=== PATIENT | female | born 1945 | race Caucasian/White ===

== ENCOUNTER → 2018-01-25 | Outpatient (CLI) | payer OTHER ==
[2018-01-26 13:41] LABS: Stool Occult Bld Immuno 1 Negative (NEGATIVE); Stool Occult Bld Immuno 2 Negative (NEGATIVE)
== END | disposition home or self-care (01) ==
LOC: LAB SHORT 12:35 → LAB 12:35
PROVIDERS: Internal Medicine Gastroenterology
DX: Z12.11 Encounter for screening for malignant neoplasm of colon (principal)
CPT/HCPCS: 82274

== ENCOUNTER 2023-10-27 17:34 | Emergency (ER) | payer OTHER ==
[~2023-10-27] VITALS: Ht 157.5 cm; Wt 65.8 kg
[2023-10-27 18:23] LABS: BASOPHILS ABSOLUTE AUTO 0.07 K/mm3 (0.00-0.23); BASOPHILS PERCENT AUTO 1 % (0-2); EOSINOPHILS ABSOLUTE AUTO 0.41 K/mm3 (0.00-0.68); EOSINOPHILS PERCENT AUTO 5 % (0-6); IMMATURE GRAN ABSOLUTE AUTO 0.04 K/mm3 (0.00-0.10); IMMATURE GRAN PERCENT AUTO 1 % (0-1); LYMPHOCYTES ABSOLUTE AUTO 2.28 K/mm3 (0.84-5.20); LYMPHOCYTES PERCENT AUTO 28 % (21-46); MONOCYTES ABSOLUTE AUTO 0.53 K/mm3 (0.16-1.47); MONOCYTES PERCENT AUTO 7 % (4-13); Mean Corpuscular HGB 32.3 pg (26.0-34.0); Mean Corpuscular HGB Conc 32.4 g/dL (31.5-36.5); Mean Corpuscular Volume 100 fL (80-100); NEUTROPHILS ABSOLUTE AUTO 4.86 K/mm3 (1.96-9.15); NEUTROPHILS PERCENT AUTO 59 % (41-73); Platelet Count 373 K/mm3 (150-400); RDW Coefficient Variation 13.3 % (11.7-14.2); RDW Standard Deviation 48.1 fL (35.1-46.3); Red Blood Cell Count 3.41 M/mm3 (3.80-5.20); White Blood Cell Count 8.19 K/mm3 (4.00-11.30)
[2023-10-27 18:29] LABS: Albumin/Globulin Ratio 0.8 (0.8-1.8); Bilirubin, Total 0.3 mg/dL (0.1-1.0); Bun/Creatinine Ratio 18.4 (12.0-20.0); Calcium, Blood 9.3 mg/dL (8.5-10.1); Creatinine, Blood 0.65 mg/dL (0.40-1.00); Globulin, Blood 3.9 g/dL (2.2-4.0); Potassium, Blood 3.8 mmol/L (3.5-5.5); Total Protein, Blood 6.9 g/dL (6.4-8.2)
[2023-10-27 22:31] LABS: C-REACTIVE PROTEIN, EXT RANGE 2.12 mg/dL (0.000-0.300)
[2023-10-27] MEDS ORDERED: ESTRADIOL1 M1 PO (22:47)
[2023-10-27] MEDS ORDERED: TRAM50 PO (22:47)
[2023-10-27] MEDS ORDERED: LEVO-T75 MC1 PO (22:48)
[2023-10-28 00:29] VITALS: BP 143/70
== END 2023-10-28 00:30 | disposition home or self-care (01) ==
LOC: ER 17:34
PROVIDERS: Student in an Organized Health Care Education/Training Program
DX: Z48.01 Encounter for change or removal of surgical wound dressing (principal); M25.551 Pain in right hip; Z96.641 Presence of right artificial hip joint; Z88.5 Allergy status to narcotic agent; Z79.890 Hormone replacement therapy
CPT/HCPCS: 80053; 85025; 86140; 99283; A9270

== ENCOUNTER → 2023-10-30 | Outpatient (CLI) | payer OTHER ==
[~2023-10-30] MED LIST: ESTRADIOL1 M1 PO; LEVO-T75 MC1 PO; TRAM50 PO
== END ==
LOC: LAB SHORT 09:42 → LAB 09:42
DX: R23.8 Other skin changes (principal)
CPT/HCPCS: 87070; 87075; 87205

== ENCOUNTER 2024-11-07 12:25 | Day surgery (SDC) | payer OTHER ==
[~2024-11-07] VITALS: Ht 157.5 cm; Wt 65.7 kg
[2024-11-07] MEDS ORDERED: Lactated Ringer's 1,000 ML IV ONE (13:02)
[2024-11-07] MEDS ORDERED: propofoL 40 ML IV ONE (13:30)
[2024-11-07 16:15] VITALS: BP 125/74
== END 2024-11-07 14:40 | disposition home or self-care (01) ==
LOC: ORSCSDS 12:25
PROVIDERS: Surgery
PROC: 0DJD8ZZ Inspection of Lower Intestinal Tract, Via Natural or Artificial Opening Endoscopic (ICD-10-PCS; principal; 2024-11-07 13:30)
DX: Z12.11 Encounter for screening for malignant neoplasm of colon (principal); E03.9 Hypothyroidism, unspecified; Z87.891 Personal history of nicotine dependence; Z79.899 Other long term (current) drug therapy
CPT/HCPCS: J2704